=== PATIENT | female | born 1950 | race Caucasian/White ===

== ENCOUNTER 2018-10-16 10:56 | Outpatient (REF) | payer MEDICARE, OTHER, SELFPAY ==
[2018-10-16 12:25] LABS: Abs Immature Grans 0.01 k/cumm (0.0-0.09); Absolute Basophil Count 0.05 k/cumm (0.0-0.2); Absolute Eosinophil Count 0.28 k/cumm (0.0-0.7); Absolute Lymphocyte Count 0.85 k/cumm (1.2-3.4); Absolute Monocyte Count 0.49 k/cumm (0.11-0.7); Absolute Neutrophil Count 5.05 k/cumm (1.2-6.7); Basophils % 0.7; Eosinophils % 4.2; HCT 34.3 % (36.0-46.0); HGB 11.1 g/dL (12.0-15.5); Immature Grans % 0.1; Lymphocytes % 12.6; Mean Corp. HGB Concentration 32.4 g/dL (32.0-36.0); Mean Corpuscular Hemoglobin 33.2 pg (27.0-33.0); Mean Corpuscular Volume 102.7 fL (80-95); Mean Platelet Volume 11.9 fL (8.0-11.0); Monocytes % 7.3; Neutrophils % 75.1; Platelet Count 222 x1000/uL (130-400); RBC 3.34 m/cumm (4.00-5.20); White Blood Cell Count 6.73 k/cumm (4.4-10.8)
[2018-10-16 12:44] LABS: BUN 63 mg/dL (7-18); CREATININE 1.27 mg/dL (0.55-1.02); Calcium 9.3 mg/dL (8.5-10.1); Chloride 100 mmol/L (98-107); Estimated GFR 41.72 (mL/min/1.73m2); Glucose 488 mg/dL (70-100); Sodium 132 mmol/L (136-145)
[2018-10-16 13:32] LABS: Potassium 7.1 mmol/L (3.5-5.1)
== END 2018-10-16 11:16 ==
LOC: LBN 10:56
PROVIDERS: PCP Family Medicine; Visit Provider Family Medicine
DX: D63.8 Anemia in other chronic diseases classified elsewhere (principal); I10 Essential (primary) hypertension; E10.9 Type 1 diabetes mellitus without complications
CPT/HCPCS: 80048; 85025

== ENCOUNTER 2018-10-16 13:59 | Emergency (ER) | payer MEDICARE, OTHER, SELFPAY ==
[2018-10-16] VITALS (23 sets, daily range): BP systolic 101–135; BP diastolic 33–56; PULSE 60–70; RESP 9–20; TEMP 36.3; O2SAT 95–98
--- NOTE | 2018-10-16 14:28 | W.ED.GENAD ---
Discharge Plan Disposition Patient Disposition: [facility] ([facility]) [facility] Condition: Improving Discharge Details Chief Complaint: GenMedical Clinical Impression: Potassium serum increased, Hyperglycemia Reason For Visit: FILIBERTOEX Primary Care Provider: Penelope Bond ED Provider: Sam Rome Home Meds and New Rx's Prescriptions: Continue furosemide 40 mg Tablet 40 mg PO DAILY RF: 0 loperamide [Imodium A-D] 2 mg Capsule 2 mg PO Q4H PRNRF: 0 lisinopril 20 mg Tablet 20 mg PO DAILY RF: 0 dextrose [Glucose Gel] 40 % Gel 15 g PO Q15M PRNRF: 0 aspirin [Aspir-81] 81 mg Tablet,Delayed Release (Dr/Ec) 81 mg PO DAILY RF: 0 tramadol 50 mg Tablet 50 mg PO Q4H PRNRF: 0 simvastatin 40 mg Tablet 40 mg PO QPM RF: 0 cyanocobalamin (vitamin B-12) 1,000 mcg/mL Solution 1,000 mcg IM QMONTH RF: 0 nitroglycerin [Nitrostat] 0.4 mg Tablet, Sublingual 0.4 mg SUBLINGUAL ONCE PRNRF: 0 glucagon (human recombinant) 1 mg Recon Soln 1 mg IM ONCE PRNRF: 0 gabapentin 100 mg Capsule 200 mg PO HS RF: 0 gabapentin 100 mg Capsule 100 mg PO TID RF: 0 metoprolol succinate 25 mg Tablet Extended Release 24 Hr 25 mg PO DAILY RF: 0 insulin lispro [Humalog U-100 Insulin] 100 unit/mL Solution 5 unit SUBCUT AC RF: 0 insulin lispro [Humalog U-100 Insulin] 100 unit/mL Solution 6 unit SUBCUT BID RF: 0 insulin lispro [Humalog U-100 Insulin] 100 unit/mL Solution SUBCUT .5 X DAILY RF: 0 insulin lispro [Humalog U-100 Insulin] 100 unit/mL Solution 3 unit SUBCUT BID RF: 0 acetaminophen 325 mg Capsule 650 mg PO Q4H PRNRF: 0 insulin glargine [Basaglar KwikPen U-100 Insulin] 100 unit/mL (3 mL) Insulin Pen 12 unit SUBCUT DAILY RF: 0 levothyroxine 88 mcg Capsule 88 mcg PO DAILY RF: 0 Discontinued potassium chloride 20 mEq Tablet Extended Release 20 meq PO DAILY RF: 0 Discharge Instructions Instructions: Hyperkalemia (ED), Diabetic Hyperglycemia (ED) Additional Instructions: Please hold potassium supplement for the next two days. Please recheck potassium level prior to being discharged in two days. Please evaluate insulin regimen. Patient voiced concern about the way she receives her insulin. Her BGL is elevated and contributing to abnormal potassium levels. Referrals: Penelope Bond [Primary Care Provider] - Return if symptoms worsen Discharge Data Discharge Date/Time-TO BE ENTERED AT DEPARTURE: 10/16/18 16:23 Medical Decision Making Will check and ECG. Pt is on Lasix and potassium supplement 20 meq. Sugars are are elevated. Apprised pt and daughter of lab results. I suspect potassium is elevated do to potassium supplement and sugars being out of control. She is scheduled to see stripper soft plastic tomorrow in [place], [place]. She is asymptomatic. Plan is to hold potassium supplement and discuss insulin regimen with pcp overseeing her care at the rehab center. Consider rechecking potassium in a couple days. I advised to return to ED if symptoms. Lab Data Lab results reviewed: Yes I reviewed the patient's lab results. Lab results narrative: Sodium 135, Potassium 6.5, Creatnine 1.51, glucose, AST 49, and Alk phos 162. Labs collected early from & reviewed as well. ECG Data Attestation: I personally reviewed and interpreted this ECG (s) as follows: Interpretation: Reviewed h Dr. Gilbert. No acute ST changes. No peak or slurring of T-Waves. HPI General Date/Time Provider Initiated Documentation: 10/16/18 14:28. Limitations to Documentation: no limitations. Information obtained by: patient. HPI Narrative: 68 y/o female here from [facility] for reported elevated potassium above 7 and elevated BGL above 400. No symptoms reported. Pt explains how she ended up at rehab. She is originally from [facility]. She was sent to [facility] in [place] being nearest tertiary facility for ? [place] and fractured right wrist. She has been rehabbing at [facility]. Plans t be discharged in two days. She also explains how her insulin therapy is not what she usually does at home and this has caused her BGL to be all over the place. She tells me her sugars go low at night and she has seizures. She has no complaints. Related Data Home Medications Medication Instructions Recorded Confirmed acetaminophen 650 mg PO Q4H PRN 10/16/18 10/16/18 aspirin [Aspir-81] 81 mg PO DAILY 10/16/18 10/16/18 cyanocobalamin (vitamin B-12) 1,000 mcg IM QMONTH 10/16/18 10/16/18 dextrose [Glucose Gel] 15 g PO Q15M PRN 10/16/18 10/16/18 furosemide 40 mg PO DAILY 10/16/18 10/16/18 gabapentin 100 mg PO TID 10/16/18 10/16/18 gabapentin 200 mg PO HS 10/16/18 10/16/18 glucagon (human recombinant) 1 mg IM ONCE PRN 10/16/18 10/16/18 insulin glargine [Basaglar KwikPen 12 unit SUBCUT DAILY 10/16/18 10/16/18 U-100 Insulin] insulin lispro [Humalog U-100 3 unit SUBCUT BID 10/16/18 10/16/18 Insulin] insulin lispro [Humalog U-100 5 unit SUBCUT AC 10/16/18 10/16/18 Insulin] insulin lispro [Humalog U-100 6 unit SUBCUT BID 10/16/18 10/16/18 Insulin] insulin lispro [Humalog U-100 unit SUBCUT .5 X DAILY 10/16/18 Insulin] levothyroxine 88 mcg PO DAILY 10/16/18 10/16/18 lisinopril 20 mg PO DAILY 10/16/18 10/16/18 loperamide [Imodium A-D] 2 mg PO Q4H PRN 10/16/18 10/16/18 metoprolol succinate 25 mg PO DAILY 10/16/18 10/16/18 nitroglycerin [Nitrostat] 0.4 mg SUBLINGUAL ONCE PRN 10/16/18 10/16/18 simvastatin 40 mg PO QPM 10/16/18 10/16/18 tramadol 50 mg PO Q4H PRN 10/16/18 10/16/18 Allergies Allergy/AdvReac Type Severity Reaction Status Date / Time imipramine [From Tofranil] Allergy Unknown Unverified 10/16/18 14:38 orange juice Allergy Unknown Unverified 10/16/18 14:38 adhesive tape Allergy Skin Rash Unverified 10/16/18 14:38 General Stated Complaint: GenMedical NAHUM: 3 Review of Systems Cardiovascular Reports system reviewed and no additional complaints, except as docu Respiratory Reports system reviewed and no additional complaints, except as docu Gastrointestinal Reports system reviewed and no additional complaints, except as docu Genitourinary Reports system reviewed and no additional complaints, except as docu Musculoskeletal Reports system reviewed and no additional complaints, except as docu Integumentary/Breasts Reports system reviewed and no additional complaints, except as docu Neurologic Reports system reviewed and no additional complaints, except as docu PFSH Social History Smoking/Tobacco Use Status: Never Social History Smoking/Tobacco Use Status: Never Exam Const General: cooperative, healthy appearing, comfortable and no acute distress Orientation: alert, awake and oriented x3 HENMT Head: atraumatic Ears: hearing grossly normal bilaterally and external ears normal General nose exam: external nose normal and nares normal Mouth: oral mucosae normal and moist mucous membranes Eyes General: appearance normal, both eyes and all related structures Neck Neck: normal visual inspection, full ROM and no lymphadenopathy Resp Effort & Inspection: normal respiratory effort Auscultation: clear to auscultation bilaterally Cardio Rate: regular rate Rhythm: regular rhythm Heart Sounds: S1 normal and S2 normal GI Palpation: soft and nontender Skin General skin exam: no rashes or lesions noted Neuro General: alert, awake and oriented x3 Cognition: normal cognition Speech: speech normal Extrem General: normal to inspection, full ROM and normal capillary refill Psych Appearance: grossly normal Mental Status: mental status grossly normal Speech and Movement: speech and movement normal Mood: congruent mood Affect: normal affect Attitude: cooperative Thought Process: normal Thought Content: normal Insight: insight good Judgment: judgment good Course Vital Signs Temperature 36.3 C L 10/16/18 14:02 Pulse 70 10/16/18 14:02 Respiratory Rate 16 10/16/18 14:02 Blood Pressure 135/33 L 10/16/18 14:02 Pulse Oximetry 98 10/16/18 14:02 Temperature 36.3 C L 10/16/18 14:02 Temperature Source Skin 10/16/18 14:02 Pulse 70 10/16/18 14:02 Respiratory Rate 16 10/16/18 14:02 Respiratory Effort Non-Labored 10/16/18 14:02 Blood Pressure 135/33 L 10/16/18 14:02 Blood Pressure Position Sitting 10/16/18 14:02 Pulse Oximetry 98 10/16/18 14:02 Pain Level 2 10/16/18 14:02
--- NOTE | 2018-10-16 14:32 | ED.GENADUL_ITS ---
Discharge Plan Disposition Patient Disposition: [facility] (LEVEL 2) [facility] Condition: Improving Discharge Details Chief Complaint: GenMedical Clinical Impression: Potassium serum increased, Hyperglycemia Reason For Visit: FILIBERTOEX Primary Care Provider: Penelope Bond ED Provider: Sam Rome Home Meds and New Rx's Prescriptions: Continue furosemide 40 mg Tablet 40 mg PO DAILY RF: 0 loperamide [Imodium A-D] 2 mg Capsule 2 mg PO Q4H PRNRF: 0 lisinopril 20 mg Tablet 20 mg PO DAILY RF: 0 dextrose [Glucose Gel] 40 % Gel 15 g PO Q15M PRNRF: 0 aspirin [Aspir-81] 81 mg Tablet,Delayed Release (Dr/Ec) 81 mg PO DAILY RF: 0 tramadol 50 mg Tablet 50 mg PO Q4H PRNRF: 0 simvastatin 40 mg Tablet 40 mg PO QPM RF: 0 cyanocobalamin (vitamin B-12) 1,000 mcg/mL Solution 1,000 mcg IM QMONTH RF: 0 nitroglycerin [Nitrostat] 0.4 mg Tablet, Sublingual 0.4 mg SUBLINGUAL ONCE PRNRF: 0 glucagon (human recombinant) 1 mg Recon Soln 1 mg IM ONCE PRNRF: 0 gabapentin 100 mg Capsule 200 mg PO HS RF: 0 gabapentin 100 mg Capsule 100 mg PO TID RF: 0 metoprolol succinate 25 mg Tablet Extended Release 24 Hr 25 mg PO DAILY RF: 0 insulin lispro [Humalog U-100 Insulin] 100 unit/mL Solution 5 unit SUBCUT AC RF: 0 insulin lispro [Humalog U-100 Insulin] 100 unit/mL Solution 6 unit SUBCUT BID RF: 0 insulin lispro [Humalog U-100 Insulin] 100 unit/mL Solution SUBCUT .5 X DAILY RF: 0 insulin lispro [Humalog U-100 Insulin] 100 unit/mL Solution 3 unit SUBCUT BID RF: 0 acetaminophen 325 mg Capsule 650 mg PO Q4H PRNRF: 0 insulin glargine [Basaglar KwikPen U-100 Insulin] 100 unit/mL (3 mL) Insulin Pen 12 unit SUBCUT DAILY RF: 0 levothyroxine 88 mcg Capsule 88 mcg PO DAILY RF: 0 Discontinued potassium chloride 20 mEq Tablet Extended Release 20 meq PO DAILY RF: 0 Discharge Instructions Instructions: Hyperkalemia (ED), Diabetic Hyperglycemia (ED) Additional Instructions: Please hold potassium supplement for the next two days. Please recheck potassium level prior to being discharged in two days. Please evaluate insulin regimen. Patient voiced concern about the way she receives her insulin. Her BGL is elevated and contributing to abnormal potassium levels. Referrals: Penelope Bond [Primary Care Provider] - Return if symptoms worsen Discharge Data Discharge Date/Time-TO BE ENTERED AT DEPARTURE: 10/16/18 16:23 Medical Decision Making Will check and ECG. Pt is on Lasix and potassium supplement 20 meq. Sugars are are elevated. Apprised pt and daughter of lab results. I suspect potassium is elevated do to potassium supplement and sugars being out of control. 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 She is asymptomatic. Plan is to hold potassium supplement and discuss insulin regimen with pcp overseeing her care at the rehab center. Consider rechecking potassium in a couple days. I advised to return to ED if symptoms. Lab Data Lab results reviewed: Yes I reviewed the patient's lab results. Lab results narrative: Sodium 135, Potassium 6.5, Creatnine 1.51, glucose, AST 49, and Alk phos 162. Labs collected early from & reviewed as well. ECG Data Attestation: I personally reviewed and interpreted this ECG (s) as follows: Interpretation: Reviewed h Dr. Gilbert. No acute ST changes. No peak or slurring of T-Waves. HPI General Date/Time Provider Initiated Documentation: 10/16/18 14:28 . Limitations to Documentation: no limitations . Information obtained by: patient . HPI Narrative: 68 y/o female here from [facility] for reported elevated potassium above 7 and elevated BGL above 400. No symptoms reported. Pt explains how she ended up at rehab. She is originally from [facility]. She was sent to [facility] in [place] being nearest tertiary facility for ? [place] and fractured right wrist. She has been rehabbing at [facility]. Plans t be discharged in two days. She also explains how her insulin therapy is not what she usually does at home and this has caused her BGL to be all over the place. She tells me her sugars go low at night and she has seizures. She has no complaints. Related Data Home Medications Medication Instructions Recorded Confirmed acetaminophen 650 mg PO Q4H PRN 10/16/18 10/16/18 aspirin [Aspir-81] 81 mg PO DAILY 10/16/18 10/16/18 cyanocobalamin (vitamin B-12) 1,000 mcg IM QMONTH 10/16/18 10/16/18 dextrose [Glucose Gel] 15 g PO Q15M PRN 10/16/18 10/16/18 furosemide 40 mg PO DAILY 10/16/18 10/16/18 gabapentin 100 mg PO TID 10/16/18 10/16/18 gabapentin 200 mg PO HS 10/16/18 10/16/18 glucagon (human recombinant) 1 mg IM ONCE PRN 10/16/18 10/16/18 insulin glargine [Basaglar KwikPen 12 unit SUBCUT DAILY 10/16/18 10/16/18 U-100 Insulin] insulin lispro [Humalog U-100 3 unit SUBCUT BID 10/16/18 10/16/18 Insulin] insulin lispro [Humalog U-100 5 unit SUBCUT AC 10/16/18 10/16/18 Insulin] insulin lispro [Humalog U-100 6 unit SUBCUT BID 10/16/18 10/16/18 Insulin] insulin lispro [Humalog U-100 unit SUBCUT .5 X DAILY 10/16/18 Insulin] levothyroxine 88 mcg PO DAILY 10/16/18 10/16/18 lisinopril 20 mg PO DAILY 10/16/18 10/16/18 loperamide [Imodium A-D] 2 mg PO Q4H PRN 10/16/18 10/16/18 metoprolol succinate 25 mg PO DAILY 10/16/18 10/16/18 nitroglycerin [Nitrostat] 0.4 mg SUBLINGUAL ONCE PRN 10/16/18 10/16/18 simvastatin 40 mg PO QPM 10/16/18 10/16/18 tramadol 50 mg PO Q4H PRN 10/16/18 10/16/18 Allergies Allergy/AdvReac Type Severity Reaction Status Date / Time imipramine [From Tofranil] Allergy Unknown Unverified 10/16/18 14:38 orange juice Allergy Unknown Unverified 10/16/18 14:38 adhesive tape Allergy Skin Rash Unverified 10/16/18 14:38 General Stated Complaint: GenMedical NAHUM: 3 Review of Systems Cardiovascular Reports system reviewed and no additional complaints, except as docu Respiratory Reports system reviewed and no additional complaints, except as docu Gastrointestinal Reports system reviewed and no additional complaints, except as docu Genitourinary Reports system reviewed and no additional complaints, except as docu Musculoskeletal Reports system reviewed and no additional complaints, except as docu Integumentary/Breasts Reports system reviewed and no additional complaints, except as docu Neurologic Reports system reviewed and no additional complaints, except as docu PFSH Social History Smoking/Tobacco Use Status: Never Social History Smoking/Tobacco Use Status: Never Exam Const General: cooperative, healthy appearing, comfortable and no acute distress Orientation: alert, awake and oriented x3 HENMT Head: atraumatic Ears: hearing grossly normal bilaterally and external ears normal General nose exam: external nose normal and nares normal Mouth: oral mucosae normal and moist mucous membranes Eyes General: appearance normal, both eyes and all related structures Neck Neck: normal visual inspection, full ROM and no lymphadenopathy Resp Effort & Inspection: normal respiratory effort Auscultation: clear to auscultation bilaterally Cardio Rate: regular rate Rhythm: regular rhythm Heart Sounds: S1 normal and S2 normal GI Palpation: soft and nontender Skin General skin exam: no rashes or lesions noted Neuro General: alert, awake and oriented x3 Cognition: normal cognition Speech: speech normal Extrem General: normal to inspection, full ROM and normal capillary refill Psych Appearance: grossly normal Mental Status: mental status grossly normal Speech and Movement: speech and movement normal Mood: congruent mood Affect: normal affect Attitude: cooperative Thought Process: normal Thought Content: normal Insight: insight good Judgment: judgment good Course Vital Signs Temperature 36.3 C L 10/16/18 14:02 Pulse 70 10/16/18 14:02 Respiratory Rate 16 10/16/18 14:02 Blood Pressure 135/33 L 10/16/18 14:02 Pulse Oximetry 98 10/16/18 14:02 Temperature 36.3 C L 10/16/18 14:02 Temperature Source Skin 10/16/18 14:02 Pulse 70 10/16/18 14:02 Respiratory Rate 16 10/16/18 14:02 Respiratory Effort Non-Labored 10/16/18 14:02 Blood Pressure 135/33 L 10/16/18 14:02 Blood Pressure Position Sitting 10/16/18 14:02 Pulse Oximetry 98 10/16/18 14:02 Pain Level 2 10/16/18 14:02
[2018-10-16 14:47] LABS: ALT 68 U/L (12-78); AST 49 U/L (15-37); Albumin 3.8 g/dL (3.4-5.0); Alkaline Phosphatase 162 U/L (46-116); Anion Gap 9.4 mmol/L (3-11); BUN 61 mg/dL (7-18); Bilirubin, Total 0.3 mg/dL (0.2-1.0); CO2 23.6 mmol/L (21.0-32.0); CREATININE 1.51 mg/dL (0.55-1.02); Calcium 9.1 mg/dL (8.5-10.1); Chloride 102 mmol/L (98-107); Estimated GFR 34.17 (mL/min/1.73m2); Glucose 293 mg/dL (70-100); Sodium 135 mmol/L (136-145); Total Protein 7.4 g/dL (6.4-8.2)
[2018-10-16 14:50] LABS: Potassium 6.5 mmol/L (3.5-5.1)
== END 2018-10-16 16:23 | disposition intermediate care facility (04) ==
PROVIDERS: Emergency Provider Nurse Practitioner Family; PCP Family Medicine
DX: E87.5 Hyperkalemia (principal); E11.65 Type 2 diabetes mellitus with hyperglycemia; Z79.4 Long term (current) use of insulin; Z79.01 Long term (current) use of anticoagulants
CPT/HCPCS: 80053; 93005; 99284; 93010

== ENCOUNTER 2018-10-18 10:18 | Outpatient (REF) | payer MEDICARE, OTHER, SELFPAY ==
[2018-10-18 10:43] LABS: Anion Gap 10.7 mmol/L (3-11); BUN 59 mg/dL (7-18); CO2 25.3 mmol/L (21.0-32.0); Calcium 9.2 mg/dL (8.5-10.1); Chloride 99 mmol/L (98-107); Estimated GFR 40.61 (mL/min/1.73m2); Glucose 339 mg/dL (70-100); Potassium 5.6 mmol/L (3.5-5.1); Sodium 135 mmol/L (136-145)
== END 2018-10-18 10:38 ==
LOC: LBN 10:18
PROVIDERS: PCP Family Medicine; Visit Provider Family Medicine
DX: I10 Essential (primary) hypertension (principal); E78.5 Hyperlipidemia, unspecified; E10.9 Type 1 diabetes mellitus without complications
CPT/HCPCS: 80048